=== PATIENT | female | born 1955 | race Caucasian/White ===

== ENCOUNTER 2023-10-29 10:53 | Emergency (ER) | payer MEDICARE, SELFPAY ==
--- NOTE | ~2023-10-29 | XR_ITS ---
XR ankle RT min 3V Ordering provider: Alfred Delgadillo History: . pain, stiff, fall . Comparison: None. FINDINGS: BONES: No acute fracture or dislocation. Calcaneal spur. JOINT SPACES: Normal. SOFT TISSUES: Normal. IMPRESSION: No acute osseous abnormality of the right ankle. Reviewed, dictated and finalized at location A.
--- NOTE | ~2023-10-29 | XR_ITS ---
XR tibia fibula LT 2V Ordering provider: Alfred Delgadillo MD History: . deformity . Comparison: None. FINDINGS: BONES: Fracture in the distal metaphysis of the fibula with fracture of the medial malleolus. Minimal displacement is seen in the tibial fracture. Highly suggestive fracture of the lateral tibial plateau. Further evaluation advised. 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 SOFT TISSUES: Normal. IMPRESSION: Bimalleolar fracture. Possible fracture of the lateral tibial plateau. Reviewed, dictated and finalized at location A.
--- NOTE | ~2023-10-29 | XR_ITS ---
XR ankle LT min 3V Ordering provider: Alfred Delgadillo MD History: . deformity ROLLING/TWIST INJ ATTN LT DEFORMITY RT STIFFNESS . Comparison: None. FINDINGS: BONES: Fracture in the distal metaphysis of the fibula. No displacement. Fracture of the medial malle olus. Minimal displacement is seen in the medial malleolus. Calcaneal spur. No other fractures seen. JOINT SPACES: The ankle mortise is normal. SOFT TISSUES: Normal. IMPRESSION: Bimalleolar fracture. Reviewed, dictated and finalized at location A. IMPRESSION: Bimalleolar fracture.
[2023-10-29 10:57] VITALS: BP 125/49; PULSE 90; RESP 16; TEMP 36.1; O2SAT 100
[2023-10-29 11:53] VITALS: PULSE 87; RESP 18; O2SAT 100
--- NOTE | 2023-10-29 12:10 | ED.LOWEXIN ---
HPI - Extremity Injury (Lower) General Chief Complaint: Extremity Injury, Lower Stated Complaint: L ankle injury Time Seen by Provider: 10/29/23 12:06 Source: patient and EMS Mode of arrival: EMS Limitations: no limitations History of Present Illness HPI Narrative: LOST HER BALANCE WHILE GOING DOWN A SIDEWALK, LANDED ON THE LEFT KNEE, TWISTED LEFT ANKLE AND RIGHT ANKLE, DENIES OTHER INJURIES. Related Data Allergies Allergy/AdvReac Type Severity Reaction Status Date / Time propoxyphene [From Darvon] AdvReac Dyspnea / Verified 10/29/23 12:30 SOB Review of Systems Review of Systems: All systems reviewed & are unremarkable except as noted in HPI and below Exam Narrative: GENERAL APPEARANCE: WELL-DEVELOPED, WELL-NOURISHED SKIN: NORMAL COLOR HEAD: NORMOCEPHALIC, NONTRAUMATIC EYES: CLEAR CONJUNCTIVA ENT: OROPHARYNX NORMAL, EARS NORMAL, NOSE NORMAL NECK: SUPPLE, NONTENDER CHEST AND RESPIRATORY: AIRWAY PATENT, NO RESPIRATORY DISTRESS, NO ACCESSORY MUSCLE USE HEART: REGULAR RATE/RHYTHM ABDOMEN: SOFT, NONTENDER, NO ORGANOMEGALY, QUIET BOWEL SOUNDS VASCULAR: NORMAL PERIPHERAL PULSES, NORMAL CAPILLARY REFILL. MUSCULOSKELETAL: LEFT KNEE DIFFUSE TENDERNESS, SEVERE LIMITED RANGE OF MOTION, LEFT ANKLE SWOLLEN, DIFFUSELY TENDER, SEVERE LIMITED RANGE OF MOTION NEUROLOGIC: ALERT AND ORIENTED ?3, OIL PROGRAM COMPLIANCE SPECIALIST IS NORMAL TESTED, NO GROSS MOTOR DEFICIT Course Consultations Consultation #1: DR ESCALANTE TRANSFER PATIENT TO OTHER FACILITY Date: 10/29/23 Time: 14:34 Consultation #2: DR PIRES [facility] Date: 10/29/23 Time: 14:34 Vital Signs Vital signs: Vital Signs Temperature 36.1 C L 10/29/23 10:57 Pulse Rate 90 10/29/23 10:57 Respiratory Rate 16 10/29/23 10:57 Blood Pressure 125/49 L 10/29/23 10:57 Pulse Oximetry 100 10/29/23 10:57 Temperature 36.1 C L 10/29/23 10:57 Pulse Rate 90 10/29/23 14:01 Respiratory Rate 16 10/29/23 14:01 Blood Pressure 135/68 10/29/23 14:01 Pulse Oximetry 96 10/29/23 14:01 MDM - Extremity Injury (Lower) MDM Narrative Medical decision making narrative: DIFFERENTIAL DIAGNOSIS INCLUDES SPRAIN/STRAIN, FRACTURE IMAGING OBTAINED ON THIS PATIENT SHOWED LEFT BIMALLEOLAR FRACTURE AND LEFT TIBIAL PLATEAU FRACTURE. DR. VEGA WAS NOTIFIED AND RECOMMENDED TO TRANSFER PATIENT TO ANOTHER FACILITY. SHORT LEG SPLINT WAS PLACED, LEFT KNEE IMMOBILIZER WAS PLACED, PATIENT IS FEELING OKAY PRIOR TO TRANSFER Differential Diagnosis Differential diagnosis: Likely other ( ABOVE) Imaging Data Radiologist's impression: Impressions Ankle X-Ray 10/29/23 11:23 IMPRESSION: Bimalleolar fracture. Tibia/Fibula X-Ray 10/29/23 11:25 IMPRESSION: Bimalleolar fracture. Possible fracture of the lateral tibial plateau. Ankle X-Ray 10/29/23 11:27 IMPRESSION: No acute osseous abnormality of the right ankle. Critical Care Time Critical Care Time Critical Care Time: No Discharge Plan Discharge Clinical Impression: Closed fracture of left tibial plateau, Bimalleolar fracture of left ankle Patient Disposition: Acute Care Hospital Condition: Stable Additional Instructions: Transferred to [facility] Follow-up/Referrals: PHYSICIAN NOT ON STAFF,NONSTAFF [Primary Care Provider] -
[2023-10-29] MEDS: HYDROmorphone HCL INJ (*CRX) 1 MG/ML SYR 0.5 MG IV PUSH (12:31)
[2023-10-29] MEDS: ONDANSETRON INJ 4 MG/2 ML VIAL IV PUSH (12:32)
[2023-10-29 14:01] VITALS: BP 135/68; PULSE 90; RESP 16; O2SAT 96
[2023-10-29 16:06] VITALS: BP 129/97; PULSE 115; RESP 16; O2SAT 99
== END 2023-10-29 16:50 | disposition short-term general hospital (02) ==
PROVIDERS: Emergency Provider Emergency Medicine
DX: S82.842A Displaced bimalleolar fracture of left lower leg, initial encounter for closed fracture (principal); S82.142A Displaced bicondylar fracture of left tibia, initial encounter for closed fracture; W01.0XXA Fall on same level from slipping, tripping and stumbling without subsequent striking against object, initial encounter
CPT/HCPCS: 29515; 73590; 73610; 96374; 96375; 99285; J1170; J2405